=== PATIENT | female | born 1960 | race Caucasian/White ===

== ENCOUNTER 2017-07-23 15:37 | Observation (INO) | payer SELFPAY ==
[2017-07-23] MEDS: NITROSTAT SL PRN ×2 (15:49→15:56)
[2017-07-23 16:08] LABS: BASOPHILS # (AUTO) 0.1 X10^3/uL (0.0-0.1); BASOPHILS % (AUTO) 0.8 % (0.2-1.0); EOSINOPHILS # (AUTO) 0.2 x10^3/uL (0.0-0.2); EOSINOPHILS % (AUTO) 2.1 % (0.9-2.9); HEMATOCRIT 44.2 % (36.0-47.0); LYMPHOCYTES # (AUTO) 2.5 X10^3/uL (1.3-2.9); LYMPHOCYTES % (AUTO) 24.7 % (21.0-51.0); MEAN CORPUSCULAR HEMOGLOBIN 28.8 pg (27.0-34.0); MEAN CORPUSCULAR HGB CONC 33.9 g/dL (33.0-35.0); MEAN CORPUSCULAR VOLUME 84.7 fL (80.0-100.0); MEAN PLATELET VOLUME 8.1 fL (7.4-11.0); MONOCYTES # (AUTO) 0.9 x10^3/uL (0.3-0.8); MONOCYTES % (AUTO) 9.3 % (0.0-13.0); NEUTROPHILS # (AUTO) 6.3 x10^3/uL (2.2-4.8); NEUTROPHILS % (AUTO) 63.1 % (42.0-75.0); PLATELET COUNT 262 X10^3/uL (150.0-450.0); RED BLOOD COUNT 5.21 X10^6/uL (3.5-5.4); RED CELL DISTRIBUTION WIDTH 14.6 % (11.6-16.5); WHITE BLOOD COUNT 9.9 X10^3/uL (3.6-10.0)
--- NOTE | 2017-07-23 16:19 | RAD ---
HISTORY: Chest pain Study: Single view of the chest. Comparison: None. Findings: The cardiomediastinal silhouette is normal. Mild interstitial prominence without focal consolidation or effusion. Osseous structures demonstrate no acute abnormality. IMPRESSION: 1. Mild interstitial prominence which may represent edema or atypical infection in the correct clini mary lou setting. Reported By:
[2017-07-23 16:24] LABS: BLOOD UREA NITROGEN 10 mg/dL (7-18); CALCIUM 8.7 mg/dL (8.5-10.1); CARBON DIOXIDE 30.3 mmol/L (21-32); CHLORIDE 102 mmol/L (98-107); CREATININE 1.13 mg/dL (0.55-1.02); SODIUM 138 mmol/L (136-145); TROPONIN I < 0.02 ng/mL (0-1.5); eGFR BLACK RACES > 60 (>60); eGFR NON BLACK RACES 53 (>60)
[2017-07-23 16:30] LABS: ALANINE AMINOTRANSFERASE 22 Units/L (12-78); ALBUMIN 3.4 g/dL (3.4-5.0); ALKALINE PHOSPHATASE 115 Units/L (46-116); ASPARTATE AMINO TRANSFERASE 18 Units/L (15-37); CKMB % 1.1 % (<4); CREATINE KINASE 143 Units/L (26-192); CREATINE KINASE MB 1.5 ng/mL (0-4.0); MAGNESIUM 1.8 mg/dL (1.7-2.9); TOTAL PROTEIN 7.7 g/dL (6.4-8.2)
[2017-07-23] MEDS: NS 1000 ML 1,000 ML IV SCH (16:41)
--- NOTE | 2017-07-23 16:56 | DR.GENAD ---
HPI - PCP Primary Care Physician: valencia - Complaint/Symptoms Chief Complaint Doctors Comments: Patient admits to chest pain, pressure, onset earlier today; midsternal non radiating. Denies history of cardiac disease. Denies cigarettes or alcohol. Chief Complaint:: patient stated she started having chest pain with pressure that fells like a cramp. - Source History Provided: Patient - Mode of Arrival Mode of Arrival: EMS - Timing Onset of Chief Complaint: 07/23/17 PMH - PMH Past Medical History: Yes Past Medical History: Arthritis Past Surgical History: Yes Surgical History: Cholecystectomy, Hysterectomy - Family History History of Family Medical Conditions: Yes Family Medical History: Diabetes Mellitus, Cancer, [place], Hypertension - Social History Does patient currently use any type of tobacco product: No Have you used tobacco products in the last 12 months: No Type of Tobacco Use: None Does any household member use tobacco: No Alcohol Use: None Do you use any recreational Drugs:: No Lives With: Family Lives Where: Home - infectious screening In the last 2 months have you had wt loss of >10#?: NO Have you had fever, night sweats or hemotysis?: No Have you traveled outside the country in the last 6 months?: No Isolation: Standard ROS - Review of Systems Eyes: No Symptoms Reported ENTM: No Symptoms Reported Respiratoy: No Symptoms Reported Cardiovascular: Chest Pain Gastrointestinal/Abdominal: No Symptoms Reported Genitourinary: No Symptoms Reported Neurological: No Symptoms Reported Musculoskeletal: No Symptoms Reported PE - Vital Signs Vitals: Temperature 98.9 F Pulse Rate [Right Radial] 63 Pulse Rate 73 Respiratory Rate 16 Blood Pressure [Right Arm] 96/53 Blood Pressure 170/98 O2 Sat by Pulse Oximetry 100 - General Limitations: No Limitations General Appearance: Alert, In Distress - Head Head Exam: Normal Inspection, Atraumatic - Eyes Eye exam: Normal Appearance, PERRL, EOMI - ENT ENT Exam: Normal Exam External Ear Exam: Normal External Inspection TM/Canal Exam: Bilateral Normal Nose Exam: Normal Nose Exam Mouth Exam: Normal Inspection Throat Exam: Normal Inspection - Neck Neck Exam: Normal Inspection, Full ROM - Chest Chest Inspection: Normal Inspection - Respiratory Respiratory Exam: Normal Lung Sounds Bilat Respiratory Exam: Bilateral Clear to Auscultation - Cardiovascular Cardiovascular Exam: Regular Rate, Normal Rhythm - Abdominal Exam Abdominal Exam: Normal Inspection, Normal Bowel Sounds Abdominal Tenderness: negative: RUQ, RLQ, LUQ, LLQ, Epigastrium, Suprapubic, Diffuse, Mild, Moderate, Severe, Other - Extremities Extremities Exam: Normal Inspection, Full ROM - Back Back Exam: Normal Inspection, Full ROM - Neurologic Neurological Exam: Alert, Oriented X3, CN II-XII Intact - Psychiatric Psychiatric Exam: Normal Affect, Normal Mood - Skin Skin Exam: Warm, Dry, Intact Course - Reevaluation 1st: Improved - Consultation Called: 16:30 (Dr Hernández agreed to admit for chest pain protocol) ROR - Labs Reviewed Result Diagrams: 07/23/17 15:55 07/23/17 15:55 Laboratory: WBC 9.9 X10^3/uL (3.6-10.0) 07/23/17 15:55 RBC 5.21 X10^6/uL (3.5-5.4) 07/23/17 15:55 Hgb 15.0 g/dL (12.0-16.0) 07/23/17 15:55 Hct 44.2 % (36.0-47.0) 07/23/17 15:55 MCV 84.7 fL (80.0-100.0) 07/23/17 15:55 MCH 28.8 pg (27.0-34.0) 07/23/17 15:55 MCHC 33.9 g/dL (33.0-35.0) 07/23/17 15:55 RDW 14.6 % (11.6-16.5) 07/23/17 15:55 Plt Count 262 X10^3/uL (150.0-450.0) 07/23/17 15:55 MPV 8.1 fL (7.4-11.0) 07/23/17 15:55 Neut % 63.1 % (42.0-75.0) 07/23/17 15:55 Lymph % 24.7 % (21.0-51.0) 07/23/17 15:55 [place] % 9.3 % (0.0-13.0) 07/23/17 15:55 Eos % 2.1 % (0.9-2.9) 07/23/17 15:55 Baso % 0.8 % (0.2-1.0) 07/23/17 15:55 Neut # 6.3 x10^3/uL (2.2-4.8) H 07/23/17 15:55 Lymph # 2.5 X10^3/uL (1.3-2.9) 07/23/17 15:55 [place] # 0.9 x10^3/uL (0.3-0.8) H 07/23/17 15:55 Eos # 0.2 x10^3/uL (0.0-0.2) 07/23/17 15:55 Baso # 0.1 X10^3/uL (0.0-0.1) 07/23/17 15:55 Absolute Nucleated RBC 0.0 /100WBC 07/23/17 15:55 INR Target Range - 07/23/17 15:55 INR 1.09 (0.8-1.3) 07/23/17 15:55 PTT 31.3 SECONDS (22.9-36.5) 07/23/17 15:55 PTT Comment - 07/23/17 15:55 Sodium 138 mmol/L (136-145) 07/23/17 15:55 Corrected Sodium TNP 07/23/17 15:55 Potassium 3.7 mmol/L (3.5-5.1) 07/23/17 15:55 Chloride 102 mmol/L (98-107) 07/23/17 15:55 Carbon Dioxide 30.3 mmol/L (21-32) 07/23/17 15:55 BUN 10 mg/dL (7-18) 07/23/17 15:55 Creatinine 1.13 mg/dL (0.55-1.02) H 07/23/17 15:55 Est GFR (MDRD) Af Amer > 60 (>60) 07/23/17 15:55 Est GFR (MDRD) Non-Af 53 (>60) L 07/23/17 15:55 Glucose 97 mg/dL (65-99) 07/23/17 15:55 Calcium 8.7 mg/dL (8.5-10.1) 07/23/17 15:55 Corrected Calcium TNP 07/23/17 15:55 Magnesium 1.8 mg/dL (1.7-2.9) 07/23/17 15:55 Total Bilirubin 0.20 mg/dL (0.2-1.0) 07/23/17 15:55 AST 18 Units/L (15-37) 07/23/17 15:55 ALT 22 Units/L (12-78) 07/23/17 15:55 Alkaline Phosphatase 115 Units/L (46-116) 07/23/17 15:55 Creatine Kinase 143 Units/L (26-192) 07/23/17 15:55 CK-MB (CK-2) 1.5 ng/mL (0-4.0) 07/23/17 15:55 CK/CKMB % Calc 1.1 % (<4) 07/23/17 15:55 Troponin I < 0.02 ng/mL (0-1.5) 07/23/17 15:55 Total Protein 7.7 g/dL (6.4-8.2) 07/23/17 15:55 Albumin 3.4 g/dL (3.4-5.0) 07/23/17 15:55 Globulin 4.3 g/dL (2.5-4.5) 07/23/17 15:55 Albumin/Globulin Ratio 0.8 Ratio (1.1-2.1) L 07/23/17 15:55 - XRAY XRAY Interpreted by: Radiologist (Chest: Mild interstitial prominence may represent edema or atypical infection in correct clinical setting.) - Diagnosis Discharge Problem: Chest pain Qualifiers: Chest pain type: unspecified Qualified Code(s): R07.9 - Chest pain, unspecified - Discharge Plan Condition: Stable - Follow ups/Referrals - Instructions
[2017-07-23 18:27] VITALS: BMI 49.7
[2017-07-23] MEDS: NORCO 5/325 MG TAB PO PRN (21:29)
[2017-07-23 22:22] LABS: CKMB % 0.8 % (<4); CREATINE KINASE 131 Units/L (26-192); CREATINE KINASE MB < 1.0 ng/mL (0-4.0); TROPONIN I < 0.02 ng/mL (0-1.5)
[2017-07-24] MEDS ORDERED: AMBIEN PO PRN (00:26)
[2017-07-24] MEDS ORDERED: MORPHINE SULFATE INJ 2 MG INJ IVP PRN (01:32)
[2017-07-24 03:56] LABS: BASOPHILS # (AUTO) 0.1 X10^3/uL (0.0-0.1); BASOPHILS % (AUTO) 0.4 % (0.2-1.0); EOSINOPHILS # (AUTO) 0.2 x10^3/uL (0.0-0.2); EOSINOPHILS % (AUTO) 1.3 % (0.9-2.9); HEMATOCRIT 41.8 % (36.0-47.0); HEMOGLOBIN 13.9 g/dL (12.0-16.0); LYMPHOCYTES # (AUTO) 2.1 X10^3/uL (1.3-2.9); LYMPHOCYTES % (AUTO) 14.1 % (21.0-51.0); MEAN CORPUSCULAR HEMOGLOBIN 28.3 pg (27.0-34.0); MEAN CORPUSCULAR HGB CONC 33.3 g/dL (33.0-35.0); MEAN CORPUSCULAR VOLUME 85.1 fL (80.0-100.0); MONOCYTES # (AUTO) 1.2 x10^3/uL (0.3-0.8); MONOCYTES % (AUTO) 7.8 % (0.0-13.0); NEUTROPHILS # (AUTO) 11.6 x10^3/uL (2.2-4.8); NEUTROPHILS % (AUTO) 76.4 % (42.0-75.0); PLATELET COUNT 209 X10^3/uL (150.0-450.0); RED BLOOD COUNT 4.92 X10^6/uL (3.5-5.4); RED CELL DISTRIBUTION WIDTH 14.4 % (11.6-16.5)
[2017-07-24 04:21] LABS: PLATELET MORPHOLOGY COMMENT NORMAL (NORMAL); WHITE BLOOD COUNT 16.1 X10^3/uL (3.6-10.0)
[2017-07-24 04:23] LABS: ALANINE AMINOTRANSFERASE 22 Units/L (12-78); ALBUMIN 2.9 g/dL (3.4-5.0); ALKALINE PHOSPHATASE 92 Units/L (46-116); ASPARTATE AMINO TRANSFERASE 16 Units/L (15-37); BLOOD UREA NITROGEN 12 mg/dL (7-18); CALCIUM 8.2 mg/dL (8.5-10.1); CARBON DIOXIDE 27.3 mmol/L (21-32); CHLORIDE 105 mmol/L (98-107); CHOL/HDL RATIO 4.4 (0.0-5.0); CHOLESTEROL 174 mg/dL (0-200); CKMB % 0.9 % (<4); COR CA(FOR HYPOALB) 9.1 mg/dL (8.5-10.1); COR NA(FOR HYPERGLY) 139 mmol/L (136-145); CREATINE KINASE 112 Units/L (26-192); CREATINE KINASE MB < 1.0 ng/mL (0-4.0); CREATININE 0.89 mg/dL (0.55-1.02); HDL CHOLESTEROL 40 mg/dL (40-60); SODIUM 138 mmol/L (136-145); TOTAL PROTEIN 6.6 g/dL (6.4-8.2); TRIGLYCERIDES 90 mg/dL (0-150); TROPONIN I < 0.02 ng/mL (0-1.5); eGFR BLACK RACES > 60 (>60); eGFR NON BLACK RACES > 60 (>60)
--- NOTE | 2017-07-24 06:12 | RAD ---
History: Chest pain Study: Portable AP chest Comparison: Yesterday Findings: The heart size is normal and the lungs are clear. There is no edema or effusion or consolid ation. No bony abnormality is demonstrated. Impression: No evidence for active cardiopulmonary disease Reported By:
[2017-07-24] MEDS: NS 1000 ML 1,000 ML IV SCH (07:22)
[2017-07-24] MEDS: NORCO 5/325 MG TAB PO PRN (08:59)
[2017-07-24 12:13] VITALS: BP 117/58
== END 2017-07-24 13:43 | disposition home or self-care (01) ==
LOC: ER 15:39 → MED/SURG 17:12
PROVIDERS: ADMIT Internal Medicine; ATTEND Internal Medicine
DX: R07.89 Other chest pain (principal)
CPT/HCPCS: 36415; 71045; 80053; 80061; 82550; 82553; 83735; 84484; 85025; 85610; 85730; 93005; 94760; 96365; 99284; A4216; A4222; G0378; J2270

== ENCOUNTER 2017-10-14 16:38 | Emergency (ER) | payer SELFPAY ==
[2017-10-14 16:46] VITALS: BP 144/68; BMI 46.5
--- NOTE | 2017-10-14 17:46 | DR.GENAD ---
HPI - PCP Primary Care Physician: Dr. Doshi - Complaint/Symptoms Chief Complaint:: pt states "Thursday I started having burning when urinating. Since then I've had worsening pain across abdomen and into left side of back. I' ve had kidney stone because I've had them before." Pt also c/o nausea and sob. Self Treatment fo Chief Complaint: took apple cider vinager with no relief - Nurses notes reviewed Nurses Notes Review: Yes - Source History Provided: Patient - Mode of Arrival Mode of Arrival: Ambulatory - Timing Onset of Chief Complaint: 10/13/17 PMH - PMH Past Medical History: Yes Past Medical History: Asthma, Kidney Stones Past Surgical History: Yes Surgical History: Cholecystectomy, Hysterectomy Past Surgical History Comment: lithotripsy - Family History History of Family Medical Conditions: Yes Family Medical History: Diabetes Mellitus, Hypertension - Social History Does patient currently use any type of tobacco product: Yes Have you used tobacco products in the last 12 months: No Type of Tobacco Use: Cigarettes Does any household member use tobacco: Yes Alcohol Use: None Do you use any recreational Drugs:: No Lives With: Spouse Lives Where: Home - infectious screening In the last 2 months have you had wt loss of >10#?: NO Have you had fever, night sweats or hemotysis?: No Have you traveled outside the country in the last 6 months?: No Isolation: Standard PE - Vital Signs Vitals: Temperature 98.6 F Pulse Rate 80 Respiratory Rate 24 Blood Pressure [Left Arm] 126/60 Blood Pressure [Right Arm] 117/58 Blood Pressure 144/68 O2 Sat by Pulse Oximetry 98 ROR - Labs Reviewed Laboratory: Specimen Type Clean catch urine 10/14/17 17:45 Urine Color Yellow (YELLOW) 10/14/17 17:45 Urine Appearance Cloudy (CLEAR) 10/14/17 17:45 Urine pH 5.0 (5.0 - 8.0) 10/14/17 17:45 Ur Specific [place] 1.025 (1.000-1.030) 10/14/17 17:45 Urine Protein 3+ (NEGATIVE) 10/14/17 17:45 Urine Glucose (UA) Negative (NEGATIVE) 10/14/17 17:45 Urine Ketones Negative (NEGATIVE) 10/14/17 17:45 Urine Occult Blood 5+ (NEGATIVE) 10/14/17 17:45 Urine Nitrite Negative (NEGATIVE) 10/14/17 17:45 Urine Bilirubin Negative (NEGATIVE) 10/14/17 17:45 Urine Urobilinogen Normal (NORMAL) 10/14/17 17:45 Ur Leukocyte Esterase 3+ (NEGATIVE) 10/14/17 17:45 Urine RBC Tntc /HPF (NONE SEEN) 10/14/17 17:45 Urine WBC Tntc /HPF (NONE SEEN) 10/14/17 17:45 Ur Squamous Epith Cells Rare /HPF (NEGATIVE) 10/14/17 17:45 Urine Bacteria 2+ /HPF (NEGATIVE) 10/14/17 17:45 Ur Culture Indicated? Yes/culture set up 10/14/17 17:45 - Diagnosis Discharge Problem: UTI (urinary tract infection) Qualifiers: Urinary tract infection type: site unspecified Hematuria presence: with hematuria Qualified Code(s): N39.0 - Urinary tract infection, site not specified ; R31.9 - Hematuria, unspecified; R31.9 - Hematuria, unspecified Abdominal pain Qualifiers: Abdominal location: lower abdomen, unspecified Qualified Code(s): R10.30 - Lower abdominal pain, unspecified - Discharge Plan Condition: Stable Prescriptions: Ibuprofen [MOTRIN TAB 800 MG *] 800 mg PO Q8H PRN #20 tab PRN Reason: Pain/Inflammation Sulfamethoxazole-Trimethoprim [BACTRIM DS TAB 800/160 MG *] 1 tab PO BID #20 tab - Follow ups/Referrals Follow ups/Referrals: NFD,None [Primary Care Provider] - 3 days - Instructions Instructions: Urinary Tract Infection, Adult, [id number], Abdominal Pain, Adult, [id number] Additional Instructions: RETURN TO ED IF WORSE.
[2017-10-14] MEDS ORDERED: TORADOL 60 MG VIAL IM ONE (17:47)
[2017-10-14 17:54] LABS: BILIRUBIN,URINE NEGATIVE (NEGATIVE); BLOOD/HEMOGLOBIN,URINE 5+ (NEGATIVE); GLUCOSE, URINE NEGATIVE (NEGATIVE); KETONES,URINE NEGATIVE (NEGATIVE); LEUKOCYTE ESTERASE ,URINE 3+ (NEGATIVE); NITRITES,URINE NEGATIVE (NEGATIVE); PROTEIN,URINE 3+ (NEGATIVE); UROBILINOGEN,URINE NORMAL (NORMAL)
[2017-10-14] MEDS ORDERED: TORADOL 60 MG VIAL ONE (17:57)
[2017-10-14 18:21] LABS: APPEARANCE,URINE CLOUDY (CLEAR); BACTERIA,URINE 2+ /HPF (NEGATIVE); COLOR,URINE YELLOW (YELLOW); RBC,URINE TNTC /HPF (NONE SEEN); SQUAMOUS EPITHELIAL CELL,UR RARE /HPF (NEGATIVE)
[2017-10-14] MEDS ORDERED: ROCEPHIN VIAL 1 GM IM ONE (20:21)
[2017-10-14] MEDS ORDERED: ROCEPHIN VIAL 1 GM ONE (20:28)
== END 2017-10-14 20:39 | disposition home or self-care (01) ==
LOC: ER 17:14
DX: N39.0 Urinary tract infection, site not specified (principal); R31.9 Hematuria, unspecified; R10.84 Generalized abdominal pain; B96.1 Klebsiella pneumoniae [K. pneumoniae] as the cause of diseases classified elsewhere
CPT/HCPCS: 81001; 87086; 87088; 87186; 96372; 99282; 99283; J0696; J1885